=== PATIENT | male | born 1980 | race African-American/Black ===

== ENCOUNTER 2016-12-06 00:40 | Emergency (ER) | payer MEDICAID ==
[~2016-12-06] VITALS: Ht 180.3 cm; Wt 87.1 kg
[2016-12-06] MEDS ORDERED: NKM (00:52)
[2016-12-06] MEDS ORDERED: Morphine Sulfate 4mg/ml Inj IVP ONE (01:15)
--- NOTE | 2016-12-06 01:26 | Emergency Room Report ---
History of Present Illness General Chief Complaint: Toothache Source: Patient Present Illness HPI 36-year-old male is in no significant past medical history presenting with 2 weeks of left upper dental pain. Patient states that he has not seen a dentist for more than 5 years. Patient states that he has required fillings in the past. Patient complaining of throbbing pain every day for more than 2 weeks, no fever no chills, some relief with Motrin. Allergies: Coded Allergies: No Known Allergies (Unverified , 12/06/16) Patient History Past Medical History: see triage record Past Surgical History: none Pertinent Family History: none Reviewed Nursing Documentation: PMH: Agreed, PSxH: Agreed Nursing Documentation-PMH Past Medical History: No Stated History Review of Systems All Other Systems: negative except mentioned in HPI Physical Exam Sp02 EP Interpretation: reviewed, normal General Appearance: normal inspection, well appearing, no apparent distress, alert, GCS 15, non-toxic Head: normocephalic, atraumatic Eyes: bilateral eye normal inspection, bilateral eye PERRL, bilateral eye EOMI ENT: normal voice, moist mucus membranes, other - . Poor dentition, dental caries, left upper thumb area generally tender to palpation, no fluctuance seen or palpated, no erythema no purulent drainage Neck: other Respiratory: normal inspection, lungs clear, normal breath sounds, no respiratory distress, no retraction, no wheezing, speaking full sentences, chest symmetrical Cardiovascular #1: normal inspection, regular rate, rhythm, no edema, normal capillary refill Cardiovascular #2: 2+ radial (R), 2+ radial (L) Gastrointestinal: normal inspection, non tender, soft, non-distended, no guarding Genitourinary: no CVA tenderness Musculoskeletal: normal inspection, back normal, normal range of motion, non- tender Neurologic: normal inspection, alert, oriented x3, responsive, motor strength/ tone normal, sensory intact, normal gait, speech normal Psychiatric: normal inspection, judgement/insight normal, memory normal Skin: normal inspection, normal color, no rash, warm/dry, well hydrated, normal turgor Medical Decision Making ER Course 36-year-old male with right-sided neck pain after dental procedure DDX: Likely dental caries, there are no signs of cellulitis or dental abscess at this time Plan: pain control ER course: Patient has remained stable during ED stay. Disposition: Patient instructed to followup with their dentist in one day without fail Strict return precautions discussed with patient such as fever, chills, worsening/severe pain, nausea, vomiting, which may indicate severe illness. Patient verbalizes understanding and agrees with plan. Please note that this Emergency Department Report was dictated using [employer] intern[employer] technology software, occasionally this can lead to erroneous entry secondary to interpretation by the dictation equipment Disposition: HOME, SELF-CARE Condition: Stable Scripts Ibuprofen* (MOTRIN*) 600 Mg Tablet 600 MG ORAL Q8H Y for For Pain, #30 TAB 0 Refills Prov: Jorge A Jansen M.D. 12/06/16 Referrals: NOT CHOSEN IPA/,REFERRING (PCP) Jorge A Jansen M.D. Dec 06, 2016 01:26
[2016-12-06 01:35] VITALS: BP 138/78
[2016-12-06] MEDS ORDERED: IBUPROFEN600 MG ORAL (01:49)
[2016-12-06 02:11] VITALS: BP 138/78
== END 2016-12-06 02:11 | disposition home or self-care (01) ==
LOC: EMR 00:59
DX: K08.89 Other specified disorders of teeth and supporting structures (principal); K02.9 Dental caries, unspecified
CPT/HCPCS: 99283